=== PATIENT | male | born 1990 | race African-American/Black ===

== ENCOUNTER 2018-07-02 11:54 | Emergency (ER) | payer OTHER ==
[~2018-07-02] VITALS: Ht 180.3 cm; Wt 64.9 kg
--- NOTE | ~2018-07-02 | EKG ---
[address] [employer] [place] [address] ELECTROCARDIOGRAM REPORT Name: CRYSTAL STEWARD Room #: [facility]ENTER[facility]iza[facility] [id number] Admission: 07/02/18 Attend Phys: Discharge: 07/02/18 Date of : 89 Report #: [id number] THIS REPORT FOR: //name// [facility] ED Test Date: 2018-07-02 Test Time: 14:08:06 Pat Name: CRYSTAL BANSALDepartment: Room: Gender: M Research Environmental Engineer: SONIYA : 1990 Requested By: Sarah Mondragon Order Number: [id number] MD: Moises Mena Measurements Intervals [place] Rate: 72 P: 26 MN: 153 QRS: 15 QRSD: 99 T: 58 QT: 417 QTc: 457 Interpretive Statements Sinus rhythm RSR' in V1 or V2, right VCD No previous ECG available for comparison Electronically Signed On 07-03-2018 8:53:46 CDT by Moises Mena [email or web address] <ELECTRONICALLY SIGNED> By: Moises Mena MD, [facility] 07/03/18 [id number] Moises Mena MD, FACC /EPI
[2018-07-02 13:12] LABS: URINE BLOOD NEGATIVE (Negative); URINE CLARITY SL CLOUDY; URINE COLOR YELLOW; URINE GLUCOSE-RANDOM* NEGATIVE (Negative); URINE KETONES TRACE (Negative); URINE LEUKOCYTES-REFLEX NEGATIVE (Negative); URINE NITRITE-REFLEX NEGATIVE (Negative); URINE PROTEIN (DIPSTICK) 2+ (Negative); URINE SPECIFIC GRAVITY >= 1.030 (1.005-1.035); URINE UROBILINOGEN 0.2 E.U./dl (0.2-1.0)
[2018-07-02 13:14] LABS: ICTOTEST (BILI CONFIRMATORY) Negative (Negative); URINE BILIRUBIN NEGATIVE (Negative)
[2018-07-02 13:27] LABS: HEMATOCRIT 37.6 % (42.0-52.0); MCH 31.4 pg (26.0-34.0); MCHC 34.5 g/dL (28.0-37.0); MCV 90.9 fL (80.0-100.0); PLATELET COUNT 292 thou/uL (150-400); RBC 4.14 mil/uL (4.50-6.00); RDW 13.1 % (10.5-14.5); WBC 20.9 thou/uL (4.0-11.0)
[2018-07-02 13:35] LABS: AMORPHOUS URATES Moderate /LPF (None Seen); BACTERIA-REFLEX 1-9 Few /HPF (None Seen); CASTS None Seen /LPF (None Seen); SQUAMOUS None Seen /LPF (0-3); URINE RBC None Seen /HPF (0-2); URINE WBC-REFLEX 0-5 Rare /HPF (0-5)
[2018-07-02 13:38] LABS: CALCIUM 10.9 mg/dL (8.5-10.1); CREATININE 4.9 mg/dL (0.7-1.3)
[2018-07-02 13:40] LABS: POTASSIUM 2.8 mmol/L (3.5-5.1)
[2018-07-02 13:45] LABS: ALBUMIN 4.5 g/dL (3.4-5.0); TOTAL BILIRUBIN 0.7 mg/dL (<0.1-1.0); TOTAL PROTEIN 10.5 g/dL (6.4-8.2)
[2018-07-02 13:58] LABS: PLATELET ESTIMATE NORMAL
[2018-07-02] MEDS ORDERED: K EFFERVESCENT25 MEQ PO (14:31)
[2018-07-02] MEDS ORDERED: NORCO 5-325 TA1 EACH PO (14:32)
== END 2018-07-02 16:22 | disposition left against medical advice (07) ==
LOC: ER 11:54
PROVIDERS: Nurse Practitioner Family
DX: D12.6 Benign neoplasm of colon, unspecified (principal); N17.9 Acute kidney failure, unspecified; E86.0 Dehydration; E87.6 Hypokalemia; D72.829 Elevated white blood cell count, unspecified